=== PATIENT | male | born 1960 | race African-American/Black ===

== ENCOUNTER 2018-06-14 14:21 | Emergency (ER) | payer BC, SELFPAY ==
[2018-06-14 15:30] LABS: BUN Blood Urea Nitrogen 9 mg/dL (7-18); Bicarbonate 24 mmol/L (21-32); Glucose Level 97 mg/dL (74-106); Potassium 3.9 mmol/L (3.5-5.1); Sodium Level 137 mmol/L (136-145)
[2018-06-14 15:32] LABS: Absolute Lymphocytes (CBC) 2.4 K/uL (0.7-4.9); Absolute Monocytes 0.5 K/uL (0.1-1.3); Absolute Neutrophil 8.2 K/uL (1.8-8.0); Basophils % 0.9 % (0-1.3); Eosinophils % 0.5 % (0-4.4); Hematocrit 48.2 % (39.6-49.0); Lymphocytes % 21.3 % (15.3-44.8); Monocytes % 4.8 % (3.3-12.3); RBC Red Blood Cell Count 5.65 M/uL (4.33-5.43)
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
--- NOTE | 2018-06-14 16:20 | RAD REPORT ---
EXAM DESCRIPTION: RAD - Shoulder Left 2 View - 06/14/2018 4:12 pm CLINICAL HISTORY: Left shoulder pain FINDINGS: No fracture or dislocation is seen.
== END 2018-06-14 16:36 | disposition home or self-care (01) ==
LOC: ER 14:21
DX: S20.20XA Contusion of thorax, unspecified, initial encounter (principal); V49.60XA Unspecified car occupant injured in collision with unspecified motor vehicles in traffic accident, initial encounter; R07.9 Chest pain, unspecified
CPT/HCPCS: 36415; 71260; 74177; 80048; 85025; 99285; Q9967